=== PATIENT | female | born 1970 ===

== ENCOUNTER 2022-06-03 09:47 | Emergency (ER) | payer OTHER ==
[2022-06-03] MEDS ORDERED: METOCLOPRAMIDE 10 MG/2 ML INJ IV ONE (11:14)
[2022-06-03] MEDS ORDERED: SODIUM CHLORIDE 0.9% 1000 ML 1,000 ML IV ONE (11:14)
[2022-06-03] MEDS ORDERED: diphenhydrAMINE 50 MG/ML VIAL IV ONE (11:14)
[2022-06-03] MEDS ORDERED: dexAMETHasone 4 MG/ML VIAL IV ONE (11:14)
--- NOTE | 2022-06-03 13:33 | Cat Scan Report ---
CT HEAD WITHOUT CONTRAST INDICATION / CLINICAL INFORMATION: headache. TECHNIQUE: Axial imaging performed from the skull apex through the skull base without the use of cont rast. Sagittal and coronal reformatted images. All CT scans at this location are performed using CT dose reduction for ALARA by means of automated exposure control. COMPARISON: None available. FINDINGS: CEREBRAL PARENCHYMA: No significant abnormality. No acute territorial infarct. HEMORRHAGE: None. EXTRA-AXIAL SPACES: Normal in size and morphology for the patient's age. VENTRICULAR SYSTEM: Normal in size and morphology for the patient's age. MIDLINE SHIFT OR HERNIATION: None. CEREBELLUM / BRAINSTEM: No significant abnormality. CALVARIUM: No significant abnormality. ORBITS: Normal as visualized. PARANASAL SINUSES / MASTOID AIR CELLS: Normal as visualized. SOFT TISSUES of HEAD: No significant abnormality. ADDITIONAL FINDINGS: None. IMPRESSION: No acute intracranial abnormality. Signer Name: Brian Sifuentes Jr, MD Signed: 06/03/2022 1:29 PM Workstation Name: [id number]
--- NOTE | 2022-06-03 14:33 | Emergency Department Report ---
<INDRA NAVA - Last Filed: 06/04/22 18:44> ED Headache HPI - General Chief Complaint: Headache Stated Complaint: HEADACHE/VOMITTING Time Seen by Provider: 06/03/22 11:03 - History of Present Illness Initial Comments: 52-year-old female with a past medical history of migraines reports to the ER with complaints of a headache since yesterday with nausea and vomiting. Patient reports that she has not had a migraine in years but reports this feels like a typical her migraine. Patient reports taking nothing for symptoms at this moment. Patient denies any numbness, weakness, change in her speech. Patient denies chest pain, shortness of breath, dizziness. No other acute symptoms reported. Patient reports headache is 9 out of 10 pain. Allergies/Adverse Reactions: Allergies No Known Allergies Allergy (Verified 06/03/22 10:08) ED Review of Systems Comment: All other systems reviewed and negative Constitutional: denies: fever, malaise, weakness Respiratory: denies: shortness of breath Cardiovascular: denies: chest pain Neurological: headache. denies: weakness, numbness, paresthesias, confusion, abnormal gait ED Past Medical Hx - Past Medical History Hx Congestive Heart Failure: Yes Hx Headaches / Migraines: Yes Hx Asthma: Yes - Surgical History Additional Surgical History: - Social History Smoking Status: Current Every Day Smoker ED Physical Exam - General Limitations: No Limitations General appearance: alert, in no apparent distress - Head Head exam: Present: atraumatic, normocephalic - Eye Eye exam: Present: normal appearance - ENT ENT exam: Present: mucous membranes moist - Neck Neck exam: Present: normal inspection - Respiratory Respiratory exam: Present: normal lung sounds bilaterally. Absent: respiratory distress - Cardiovascular Cardiovascular Exam: Present: regular rate, normal rhythm. Absent: systolic murmur, diastolic murmur, rubs, gallop - GI/Abdominal GI/Abdominal exam: Present: soft, normal bowel sounds - Extremities Exam Extremities exam: Present: normal inspection - Back Exam Back exam: Present: normal inspection - Neurological Exam Neurological exam: Present: alert, oriented X3 - Expanded Neurological Exam Expanded Neurological exam: Absent: ataxia Patient oriented to: Present: person, place, time Speech: Present: fluid speech Cranial nerves: EOM's Intact: Normal, Facial Sensation: Normal Upper motor neuron: Pronator Drift: Normal, Sensory Extinction: Normal Motor strength exam: RUE: 5, LUE: 5, RLE: 5, LLE: 5 Best Eye Response (Dodge): (4) open spontaneously Best Motor Response (Jeanette): (6) obeys commands Best Verbal Response (Dodge): (5) oriented Jeanette Total: 15 - Psychiatric Psychiatric exam: Present: normal affect, normal mood - Skin Skin exam: Present: warm, dry, intact, normal color. Absent: rash ED Medical Decision Making - Radiology Data Radiology results: report reviewed [facility] [address] [place] [address] Cat Scan Report Signed Patient: SUNDAR WHYTE MR#: [id number] : 1970 Acct:[id number] Age/Sex: 52 / F ADM Date: 06/03/22 Loc: ED Attending Dr: Ordering Physician: CHRISTINA NAVA NP Date of Service: 06/03/22 Procedure(s): CT head/brain wo con Accession Number(s): [id number] cc: CHRISTINA NAVA NP CT HEAD WITHOUT CONTRAST INDICATION / CLINICAL INFORMATION: headache. TECHNIQUE: Axial imaging performed from the skull apex through the skull base without the use of contrast. Sagittal and coronal reformatted images. All CT scans at this [facility] are performed using CT dose reduction for ALARA by means of automated exposure control. COMPARISON: None available. FINDINGS: CEREBRAL PARENCHYMA: No significant abnormality. No acute territorial infarct. HEMORRHAGE: None. EXTRA-AXIAL SPACES: Normal in size and morphology for the patient's age. VENTRICULAR SYSTEM: Normal in size and morphology for the patient's age. MIDLINE SHIFT OR HERNIATION: None. CEREBELLUM / BRAINSTEM: No significant abnormality. CALVARIUM: No significant abnormality. ORBITS: Normal as visualized. PARANASAL SINUSES / MASTOID AIR CELLS: Normal as visualized. SOFT TISSUES of HEAD: No significant abnormality. ADDITIONAL FINDINGS: None. IMPRESSION: No acute intracranial abnormality. Signer Name: Brian Sifuentes Jr, MD Signed: 06/03/2022 1:29 PM Workstation Name: [id number] Transcribed By: TTR Dictated By: BRIAN SIFUENTES JR, MD Electronically Authenticated By: BRIAN SIFUENTES JR, MD Signed Date/Time: 06/03/22 1329 DD/ 1326 TD/TT: - Medical Decision Making 52-year-old female with past medical history migraines reports to the ER with complaints of a headache since yesterday with nausea and vomiting. Patient reports that this migraine feels like her prior migraines but has not had a migraine in several years. Patient denies dizziness no shortness of breath, no chest pain, no weakness, no changes in her speech. On physical exam patient is neurologically intact. No unilateral weakness noted. Strength is noted 5+ in upper and lower extremities. GCS is 15 patient is alert and oriented x4. CT of head ordered. Due to patient not having a migraine in several years and now today presents with headache with nausea vomiting. Results of CTare negative for no acute process noted. See official report for further details. Patient received headache cocktail of IV fluids, Reglan 10 mg, Benadryl 25 mg, Decadron 8 mg, IV meds. Patient reports feeling better after receiving IV medications and IV fluids, patient reports her headache is no longer present pain is 0 out of 10. Patient to follow her primary care provider for further evaluation and annual physical. Patient agrees with plan of care and verbalizes understanding. No further work-up is needed at this time patient is stable for discharge home. Vital Signs (72 hours) 06/03/22 10:05 Temperature 99.7 F H Pulse Rate 109 H Respiratory 14 Rate Blood Pressure 117/71 O2 Sat by Pulse 100 Oximetry Vital Signs 06/03/22 06/03/22 10:05 15:04 Temperature 99.7 F H 99.0 F Pulse Rate 109 H 77 Respiratory 14 18 Rate Blood Pressure 117/71 Blood Pressure 116/59 [Right] O2 Sat by Pulse 100 100 Oximetry ED Disposition Clinical Impression: Migraine Qualifiers: Migraine type: without aura Status migrainosus presence: without status migrainosus Intractability: not intractable Qualified Code(s): G43.009 - Migraine without aura, not intractable, without status migrainosus Disposition: 01 HOME / SELF CARE / HOMELESS Is pt being admited?: No Condition: Stable Instructions: Migraine Headache, [id number], Migraine Headache Referrals: MICHELLE COTTON MD [Primary Care Provider] - 3-5 Days Forms: Work/School Release Form(ED) Time of Disposition: 14:32 <WILL ADAMS - Last Filed: 06/05/22 16:05> ED Review of Systems ROS: Stated complaint: HEADACHE/VOMITTING Other details as noted in HPI ED Course Vital Signs 06/03/22 06/03/22 10:05 15:04 Temperature 99.7 F H 99.0 F Pulse Rate 109 H 77 Respiratory 14 18 Rate Blood Pressure 117/71 Blood Pressure 116/59 [Right] O2 Sat by Pulse 100 100 Oximetry ED Medical Decision Making - Medical Decision Making Patient was managed independently by the mid level below , I was available for consult but i wasn't directly involved in the care of this patient Critical care attestation.: If time is entered above; I have spent that time in minutes in the direct care of this critically ill patient, excluding procedure time. ED Disposition Is pt being admited?: No Does the pt Need Aspirin: No
[2022-06-03 15:06] VITALS: BP 116/59
== END 2022-06-03 15:06 | disposition home or self-care (01) ==
LOC: ED 09:47
DX: G43.909 Migraine, unspecified, not intractable, without status migrainosus (principal); J45.909 Unspecified asthma, uncomplicated; F17.200 Nicotine dependence, unspecified, uncomplicated; Z98.890 Other specified postprocedural states
CPT/HCPCS: 70450; 96361; 96374; 96375; 99283; J1100; J1200; J2765; J7030